=== PATIENT | female | born 1960 | race American Indian/Alaskan Native ===

== ENCOUNTER 2017-12-27 18:14 | Emergency (ER) | payer BC ==
--- NOTE | 2017-12-27 19:17 | XRay Report ---
FINAL REPORT EXAM: XR SHOULDER 2+V RT HISTORY: SHOULDER PAIN S/P FALL TECHNIQUE: AP, Y, and oblique views of the right shoulder PRIORS: None. FINDINGS: There is no evidence of acute fracture or dislocation. The bony mineralization is normal. Soft tissues are unremarkable. Narrowing of the AC joint is noted. There is spurring inferiorly off the AC joint and undersurface of the acromion which can be associated rotator cuff injury. IMPRESSION: No acute abnormality identified in the right shoulder. Spurring off the undersurface of the acromion and AC joint which can be associated rotator cuff injury.
--- NOTE | 2017-12-28 00:47 | Emergency Department Report ---
Upper Extremity - HPI Chief Complaint: Extremity Injury, Upper Stated Complaint: Fall; shoulder pain Time Seen by Provider: 12/28/17 00:45 Upper Extremity: Right Shoulder ( from falling) Occurred When: 1 Day Mechanism: Fall (and hit right shoulder) Symptoms: Yes Pain with Movement (right shoulder), Yes Limited Range of Movement (right shoulder), No Deformity, No Numbness, No Weakness, No Swelling, No Bruising/Ecchymosis, No Laceration or Abrasion Other History: Patient reports that she was trying to go upstairs in her left yesterday and she tripped and fell on her right shoulder and she is having pain 7 out of 10 and is achy. No medication taken. She says she has chronic shoulder pain from rotator cuff disease and also from arthritis. She said the pain got worse and she came to the hospital to make sure she did not have a fracture. Pain is achy. Pain is worse with movement better with rest. Denies any fever or chills. She said initially when she fell she had some radiation of pain down to her right hand but it is better now and pain is localized to her right shoulder. Denies any chest pain or shortness of breath. Denies any nausea or vomiting. Denies any head injury. ED Review of Systems ROS: Stated complaint: Fall; shoulder pain Other details as noted in HPI Comment: All other systems reviewed and negative Constitutional: no symptoms reported Respiratory: no symptoms reported Cardiovascular: denies: chest pain, palpitations, dyspnea on exertion, orthopnea , edema, syncope, paroxysmal nocturnal dyspnea Gastrointestinal: denies: abdominal pain, nausea, vomiting Genitourinary: denies: hematuria Musculoskeletal: arthralgia. denies: back pain, joint swelling, myalgia Skin: denies: rash Neurological: denies: headache, numbness, paresthesias, confusion, abnormal gait , vertigo ED Past Medical Hx - Past Medical History Previous Medical History?: Yes Hx Hypertension: Yes Hx Diabetes: Yes Hx GERD: Yes Hx Arthritis: Yes Additional medical history: Right rotator cuff disease - Surgical History Past Surgical History?: Yes Additional Surgical History: BL knee replacement, BL carpal tunnel, tubal ligation - Family History Family history: hypertension - Social History Smoking Status: Former Smoker Substance Use Type: None - Medications Home Medications: Home Medications Medication Instructions Recorded Confirmed Last Taken Type Aspirin [Adult Low Dose Aspirin EC] 81 mg PO QDAY 02/28/17 02/28/17 Unknown History Atenolol/Chlorthalidone [Tenoretic 1 tab PO QDAY 02/28/17 02/28/17 02/27/17 History 50-25] Ibuprofen [Motrin 800 MG tab] 800 mg PO TID 02/28/17 02/28/17 Unknown History Omeprazole Magnesium [PriLOSEC Otc] 20 mg PO QDAY 02/28/17 02/28/17 Unknown History metFORMIN [Glucophage] 500 mg PO BID 02/28/17 02/28/17 02/28/17 History traMADol [Ultram] 50 mg PO Q6HR PRN #12 tablet 12/28/17 Unknown Rx Upper Extremity Exam - Exam General: Vital signs noted. No distress. Alert and acting appropriately. Head and Torso: No HEENT Abnormality (normal exam), No Neck Tenderness (no C- spine tenderness, full range of motion.), No Chest/Lungs Abnormality (lung sounds clear to auscultate bilaterally. No chest wall tenderness.), No Abdominal Tenderness (nontender the palpation in all quadrants and normal bowel sounds), No Back Tenderness (no CVA, vertebral or paraspinal tenderness and patient has full range of motion) Shoulder Exam: Yes Shoulder Tenderness (AC joint and glenohumeral joint tenderness), Yes AC Joint Tenderness, No Clavicle Tenderness, No Normal Range of Motion in Shoulder (patient with limited range of motion to right shoulder because she says she is having pain and this is not unusual for her to have limited range of motion to her right shoulder, but she said it's worse since fall), No Shoulder Deformity Arm Exam: No Arm/Humerus Tenderness, No Arm Deformity Elbow: Yes Normal Range of Motion in Elbow, No Elbow Tenderness, No Elbow Deformity Forearm: Yes Pain with Pronation (right shoulder), Yes Pain with Supination ( right shoulder), No Forearm Tenderness, No Forearm Deformity Wrist: Yes Normal ROM in Wrist, No Wrist Tenderness, No Wrist Deformity, No Snuffbox Tenderness, No Pain with Axial Thumb Compression Hand: Yes Normal ROM in Digit(s), No Hand Tenderness, No Hand Deformity, No Digit Tenderness, No Digit(s) Deformity, No Tendon Dysfunction CMS Exam: Yes Normal Distal Pulses, Yes Normal Capillary Refill, Yes Normal Distal Sensation, No Broken Skin ED Course Vital Signs 12/27/17 18:35 Temperature 98.4 F Pulse Rate 74 Respiratory 20 Rate Blood Pressure 112/69 O2 Sat by Pulse 96 Oximetry - Reevaluation(s) Reevaluation #1: 12/28/17 02:05 She received Toradol 30 mg IM, Christopher 5/325 2 tablets by mouth in emergency room for pain. Right shoulder sling placed. - Orthopedic Splinting/Casting Injury #1 Side: right Upper Extremity Injury Location: shoulder Upper Extremity Immobilizer: sling/shoulder immobilize ED Medical Decision Making - Radiology Data Radiology results: report reviewed X-ray report revealed no acute abnormality identified in the right shoulder. Spurring off the undersurface of the acromion and AC joint which can be associated rotator cuff injury - Medical Decision Making ED course: Patient status post fall last night and reports that she is having shoulder pain on top of her chronic shoulder pain from arthritis and rotator cuff injury. X-ray done and showed that she had no acute fracture dislocation but she does have some spurring and arthritis. Soft tissues unremarkable. Patient was given a 5/325 mg 2 tablets and Toradol 30 mg IM in emergency room for pain. I discussed with her x-ray results and told her that she needs to follow up with her orthopedic doctor to call in the morning to schedule an appointment. Patient does have a orthopedic doctor that she follows. Right arm sling placed to rest shoulder. Patient with acute exacerbation of chronic right shoulder pain due to fall. Discharged home in stable condition with her with prescription for Ultram. Critical care attestation.: If time is entered above; I have spent that time in minutes in the direct care of this critically ill patient, excluding procedure time. ED Disposition Clinical Impression: Arthritis of right shoulder region Acute shoulder pain due to trauma Qualifiers: Laterality: right Qualified Code(s): M25.511 - Pain in right shoulder; G89.11 - Acute pain due to trauma Accidental fall Qualifiers: Encounter type: initial encounter Qualified Code(s): W19.XXXA - Unspecified fall, initial encounter Disposition: TO HOME OR SELFCARE Is pt being admited?: No Does the pt Need Aspirin: No Condition: Stable Instructions: Osteoarthritis (ED), Fall Prevention (ED), Arthralgia (ED), RICE Therapy (ED) Additional Instructions: Please wear arm sling for 72 hours to right shoulder Follow up with your your orthopedic doctor Take Ultram for pain but please do not drive or operate heavy machinery while taking this medication Prescriptions: traMADol [Ultram] 50 mg PO Q6HR PRN #12 tablet PRN Reason: Pain Referrals: Your, orthopedic doctor [Other] - 3-5 Days Forms: Accompanied Note, Work/School Release Form(ED)
[2017-12-28] MEDS ORDERED: TORADOL IM ONE (01:46)
[2017-12-28] MEDS ORDERED: NORCO 5/325 PO ONE (01:46)
[2017-12-28 03:39] VITALS: BP 114/70
== END 2017-12-28 02:12 | disposition home or self-care (01) ==
LOC: ED 18:14
DX: M25.511 Pain in right shoulder (principal); G89.11 Acute pain due to trauma; I10 Essential (primary) hypertension; E11.9 Type 2 diabetes mellitus without complications; K21.9 Gastro-esophageal reflux disease without esophagitis
CPT/HCPCS: 73030; 96372; 99284; J1885